=== PATIENT | male | born 1950 | race Caucasian/White ===

== ENCOUNTER 2022-06-28 18:59 | Observation (INO) ==
[2022-06-28] MEDS ORDERED: ASPIRIN 325 MG TABLET PO STA (19:21)
[2022-06-28 19:30] LABS: Basophils # 0.1 10*3/uL (0.0-0.2); Basophils % 0.5 % (0.0-0.8); Eosinophils # 0.2 10*3/uL (0.0-0.87); Eosinophils % 1.5 % (0.00-10.9); Hematocrit 37.5 VOL% (42.0-52.0); Hemoglobin 11.4 GM/DL (14.0-18.0); Immature Granulocytes % 1.6 %; Immature Granulocytes Absolute 0.18 #; Lymphocytes # 2.9 10*3/uL (1.4-4.0); Lymphocytes % 25.4 % (21.2-54.2); Mean Corpuscular HGB Conc 30.4 GM/DL (32-36); Mean Corpuscular Volume 88.2 FL (87-102); Mean Platelet Volume 8.5 FL (9.6-12.0); Monocytes # 1.1 10*3/uL (0.11-0.8); Monocytes % 9.8 % (1.7-12.7); Neutrophils % 61.2 % (38.7-73.9); Platelet Count 426 T/CUMM (130-400); Red Blood Count 4.25 MC/CUMM (3.8-5.5); Red Cell Distribution Width 14.4 % (9.3-17.3); White Blood Count 11.5 T/CUMM (4-12)
[2022-06-28] MEDS ORDERED: NITROGLYCERIN 2% OINT 1 INCH/GM PACK TOP STA (19:32)
[2022-06-28] MEDS ORDERED: MORPHINE 2 MG/1 ML SYRINGE IV STA (19:32)
[2022-06-28] MEDS ORDERED: ONDANSETRON 4 MG/2 ML VIAL IV STA (19:32)
[2022-06-28 19:51] LABS: INR 0.9; PT Patient Result 9.8 SECS (10.1-12.1); Partial Thromboplastin Time 26.2 SECS (23.7-32.9)
[2022-06-28 19:55] LABS: Alanine Aminotransferase 46 U/L (16-61); Alkaline Phosphatase 89 U/L (45-117); Aspartate Amino Transferase 27 U/L (0-37); Bilirubin,Total < 0.39 MG/DL (0.20-1.00); Blood Urea Nitrogen 28 MG/DL (7-18); Calcium 8.8 MG/DL (8.5-10.1); Carbon Dioxide 27 MMOL/L (21-32); Chloride 107 MMOL/L (98-107); Glucose 108 MG/DL (74-106); Osmolality,Calculated 289.1 MOS/KG (273-304); Potassium 4.1 MMOL/L (3.5-5.1); Sodium 142 MMOL/L (136-145); Total Protein 6.9 G/DL (6.4-8.2)
[2022-06-28] MEDS ORDERED: ENOXAPARIN 100 MG/ML SYRINGE SUBCUT STA (20:19)
[2022-06-28] MEDS ORDERED: ONDANSETRON 4 MG/2 ML VIAL IV PRN (21:39)
[2022-06-28] MEDS ORDERED: ACETAMINOPHEN 325 MG TABLET PO PRN (21:39)
[2022-06-28] MEDS ORDERED: hydrALAZINE 20 MG/1 ML VIAL IV PRN (21:39)
[2022-06-28] MEDS ORDERED: MORPHINE 2 MG/1 ML SYRINGE IV PRN (21:39)
[2022-06-29 04:10] LABS: Basophils # 0.1 10*3/uL (0.0-0.2); Basophils % 1.1 % (0.0-0.8); Eosinophils # 0.3 10*3/uL (0.0-0.87); Eosinophils % 2.8 % (0.00-10.9); Hemoglobin 10.6 GM/DL (14.0-18.0); Immature Granulocytes Absolute 0.19 #; Lymphocytes % 31.3 % (21.2-54.2); Mean Corpuscular HGB Conc 30.3 GM/DL (32-36); Mean Corpuscular Volume 87.9 FL (87-102); Mean Platelet Volume 8.5 FL (9.6-12.0); Monocytes % 10.1 % (1.7-12.7); Neutrophils % 52.7 % (38.7-73.9); Platelet Count 390 T/CUMM (130-400); Red Blood Count 3.98 MC/CUMM (3.8-5.5); Red Cell Distribution Width 14.3 % (9.3-17.3); White Blood Count 9.4 T/CUMM (4-12)
[2022-06-29 04:42] LABS: Calcium 9.1 MG/DL (8.5-10.1); Osmolality,Calculated 283.3 MOS/KG (273-304); Potassium 3.7 MMOL/L (3.5-5.1); Risk Ratio 2.95; Thyroid Stimulating Hormone 2.5 uIU/ml (0.358-3.74); VLDL Cholesterol 19.2 MG/DL
[2022-06-29] MEDS ORDERED: MAGNESIUM SULF RIDER 2 GM/50 ML PREMIX IV PRN (09:00)
[2022-06-29] MEDS ORDERED: DIAZEPAM 5 MG TABLET PO ONE (09:00)
[2022-06-29] MEDS ORDERED: POTASSIUM CHLORIDE RIDER 10 MEQ/100 ML PREMIX IV PRN (09:00)
[2022-06-29] MEDS ORDERED: diphenhydrAMINE CAP 50 MG CAPSULE PO ONE (09:00)
[2022-06-29] MEDS ORDERED: ASPIRIN EC 325 MG TABLET PO SCH (09:00)
[2022-06-29] MEDS: NEBIVOLOL 5 MG TABLET PO SCH (09:31)
[2022-06-29] MEDS: predniSONE 20 MG TABLET PO SCH (09:31)
[2022-06-29] MEDS: ASPIRIN EC 81 MG TABLET PO SCH (09:31)
[2022-06-29] MEDS: SODIUM CHLORIDE 0.9% 1,000 ML IV SCH ×2 (09:31→17:10)
[2022-06-29] MEDS: hydroCHLOROthiazide 12.5 MG CAPSULE PO SCH (09:31)
[2022-06-29] MEDS: OLMESARTAN 20 MG TABLET PO SCH (09:31)
[2022-06-29] MEDS: ROSUVASTATIN 20 MG TABLET PO SCH (09:31)
[2022-06-29] MEDS: PANTOPRAZOLE 40 MG TABLET PO SCH (09:31)
[2022-06-29] MEDS ORDERED: NITROGLYCERIN DRIP 50 MG/250 ML BOTTLE IV ONE (10:17)
[2022-06-29] MEDS ORDERED: VERAPAMIL 5 MG/2 ML VIAL ONE (10:17)
[2022-06-29] MEDS ORDERED: HEPARIN/NACL 0.9% 2 UNITS/ML 2,000 UNIT/1,000 ML BAG IV ONE (10:17)
[2022-06-29] MEDS ORDERED: MIDAZOLAM 2 MG/2 ML VIAL ONE (10:52)
[2022-06-29] MEDS ORDERED: fentaNYL 100 MCG/2 ML VIAL ONE (10:52)
[2022-06-29] MEDS ORDERED: ENOXAPARIN 60 MG/0.6 ML SYRINGE ONE (11:07)
[2022-06-29] MEDS ORDERED: TIROFIBAN 5,000 MCG/100 ML PREMIX IV ONE (11:35)
[2022-06-29] MEDS ORDERED: TIROFIBAN 5,000 MCG/100 ML PREMIX IV SCH (11:41)
[2022-06-29] MEDS ORDERED: TICAGRELOR 90 MG TABLET ONE (11:46)
[2022-06-29] MEDS ORDERED: ENOXAPARIN 40 MG/0.4 ML SYRINGE SUBCUT SCH (21:00)
[2022-06-29] MEDS: TICAGRELOR 90 MG TABLET PO SCH (21:40)
[2022-06-30] MEDS: SODIUM CHLORIDE 0.9% 1,000 ML IV SCH ×2 (03:03→08:16)
[2022-06-30 04:42] LABS: Basophils # 0.1 10*3/uL (0.0-0.2); Basophils % 0.5 % (0.0-0.8); Eosinophils # 0.2 10*3/uL (0.0-0.87); Eosinophils % 1.4 % (0.00-10.9); Hematocrit 35.5 VOL% (42.0-52.0); Hemoglobin 11.2 GM/DL (14.0-18.0); Immature Granulocytes % 1.4 %; Immature Granulocytes Absolute 0.18 #; Lymphocytes % 24.3 % (21.2-54.2); Mean Corpuscular HGB Conc 31.5 GM/DL (32-36); Mean Corpuscular Volume 86.6 FL (87-102); Mean Platelet Volume 8.5 FL (9.6-12.0); Monocytes % 8.1 % (1.7-12.7); Neutrophils % 64.3 % (38.7-73.9); Platelet Count 411 T/CUMM (130-400); Red Cell Distribution Width 14.5 % (9.3-17.3); White Blood Count 12.5 T/CUMM (4-12)
[2022-06-30 05:23] LABS: Calcium 9.1 MG/DL (8.5-10.1); Osmolality,Calculated 282.3 MOS/KG (273-304); Potassium 3.7 MMOL/L (3.5-5.1)
[2022-06-30] MEDS: NEBIVOLOL 5 MG TABLET PO SCH (08:13)
[2022-06-30] MEDS: ROSUVASTATIN 20 MG TABLET PO SCH (08:14)
[2022-06-30] MEDS: PANTOPRAZOLE 40 MG TABLET PO SCH (08:14)
[2022-06-30] MEDS: OLMESARTAN 20 MG TABLET PO SCH (08:14)
[2022-06-30] MEDS: ASPIRIN EC 81 MG TABLET PO SCH (08:14)
[2022-06-30] MEDS: predniSONE 20 MG TABLET PO SCH (08:14)
[2022-06-30] MEDS: TICAGRELOR 90 MG TABLET PO SCH (08:14)
[2022-06-30] MEDS: hydroCHLOROthiazide 12.5 MG CAPSULE PO SCH (08:14)
[2022-06-30 12:18] VITALS: BP 130/74
== END 2022-06-30 13:43 | disposition home or self-care (01) ==
LOC: N.ED 18:59 → N.EDINP 18:59 → SUATTDRO 21:39 → N.TELES 06-29 10:30
PROVIDERS: ADMIT Family Medicine; ATTEND Internal Medicine
PROC: CLCCHCL (ICD-10-PCS; 2022-06-29 11:45)